=== PATIENT | male | born 1970 | race African-American/Black ===

== ENCOUNTER 2021-11-08 03:44 | Emergency (ER) | payer MEDICAID ==
[~2021-11-08] VITALS: Ht 182.9 cm; Wt 94.0 kg
[~2021-11-08 03:44] MED LIST: AMLO10TA4 PO; ASEN10TA10 SL; FERR325T6 MT; PROT40 MT; SENN-257 MT; SUCR1TAB30 MT
[2021-11-08 03:48] VITALS: BP 142/88
[2021-11-08] MEDS ORDERED: MAGNESIUM/ALUMINUM HYDROXIDE/SIMETHICONE 30ML UDC PO ONE (10:00)
[2021-11-08] MEDS ORDERED: FAMOTIDINE 20MG TABLET PO ONE (10:00)
[2021-11-08] MEDS ORDERED: ONDANSETRON 4MG ODT PO ONE (10:00)
[2021-11-08] MEDS ORDERED: ACETAMINOPHEN 325MG TABLET PO ONE (10:00)
[2021-11-08 11:10] LABS: BASOPHILS % 0.9 % (0.0-2.0); EOSINOPHILS % 0.8 % (0.0-5.0); HEMATOCRIT. 26.9 % (42.0-52.0); HEMOGLOBIN. 8.9 g/dL (14.0-18.0); LYMPHOCYTES % 28.7 % (20.0-50.0); MEAN CORPUSCULAR HEMOGLOBIN 29.7 pg (28.0-32.0); MEAN PLATELET VOLUME 7.2 fl (7.4-10.4); MONOCYTES % 7.5 % (2.0-8.0); NEUTROPHILS % 62.1 % (40.0-76.0); PLATELET 308 x1000/uL (130-400); RED BLOOD CELL COUNT 2.99 mill/uL (4.7-6.1)
[2021-11-08 11:19] LABS: CHLORIDE 104 mEq/L (98-107)
[2021-11-08] MEDS ORDERED: FAMO40TA70 MT (12:51)
[2021-11-08] MEDS ORDERED: SIME180C70 MT (12:51)
== END 2021-11-08 13:15 | disposition home or self-care (01) ==
LOC: ER 03:52
DX: K21.9 Gastro-esophageal reflux disease without esophagitis (principal); D64.9 Anemia, unspecified; K29.70 Gastritis, unspecified, without bleeding; J33.9 Nasal polyp, unspecified; I10 Essential (primary) hypertension
CPT/HCPCS: 36415; 71045; 80053; 85025; 85610; 86850; 86900; 86901; 93005; 99285; Q0162

== ENCOUNTER 2021-12-10 23:33 | Emergency (ER) | payer MEDICAID ==
[~2021-12-10] VITALS: Ht 177.8 cm; Wt 90.0 kg
[~2021-12-10 23:33] MED LIST changes: +FAMO40TA70 MT; +SIME180C70 MT
[2021-12-10 23:57] LABS: BASOPHILS % 0.4 % (0.0-2.0); HEMATOCRIT. 40.2 % (42.0-52.0); LYMPHOCYTES % 21.6 % (20.0-50.0); MEAN CORPUSCULAR HEMOGLOBIN 28.9 pg (28.0-32.0); MEAN CORPUSCULAR VOLUME 89.5 fL (80.0-94.0); MEAN PLATELET VOLUME 7.8 fl (7.4-10.4); MONOCYTES % 7.8 % (2.0-8.0); NEUTROPHILS % 70.2 % (40.0-76.0); PLATELET 255 x1000/uL (130-400); RED BLOOD CELL COUNT 4.49 mill/uL (4.7-6.1)
[2021-12-11 00:04] LABS: CHLORIDE 101 mEq/L (98-107)
[2021-12-11 00:14] LABS: ETHANOL BLOOD < 10 mg/dL
[2021-12-11] MEDS ORDERED: LORAZEPAM 0.5MG TABLET PO ONE (00:15)
[2021-12-11] MEDS ORDERED: ALBUTEROL (0.083%) 2.5MG/3ML NEB HHN ONE ×2 (00:45)
[2021-12-11 01:35] LABS: CLARITY URINE CLEAR (CLEAR); COLOR URINE YELLOW (YELLOW); KETONES URINE NEGATIVE (NEGATIVE); LEUKOCYTE ESTERASE URINE NEGATIVE (NEGATIVE); NITRITE URINE NEGATIVE (NEGATIVE); OCCULT BLOOD URINE NEGATIVE (NEGATIVE); PH URINE 5.5 (4.5-8.0); PROTEIN URINE NEGATIVE (NEGATIVE); SPECIFIC GRAVITY URINE 1.021 (1.005-1.030); UROBILINOGEN URINE 0.2 E.U./dL (0.2-1.0)
[2021-12-11 01:51] LABS: *AMPHETAMINES SCREEN URINE NEGATIVE (NEGATIVE); *BARBITURATES SCREEN URINE NEGATIVE (NEGATIVE); *BENZODIAZEPINES SCREEN URINE NEGATIVE (NEGATIVE); *COCAINE SCREEN URINE NEGATIVE (NEGATIVE); CANNABINOID URINE SCREEN PRESUMTIVE POSITIVE (NEGATIVE); METHADONE URINE SCREEN NEGATIVE (NEGATIVE); OPIATES URINE SCREEN NEGATIVE (NEGATIVE); PHENCYCLIDINE URINE SCREEN NEGATIVE (NEGATIVE)
[2021-12-11 03:13] LABS: BG BASE EXCESS 3.4 mmol/L (-2.0-2.0); BG CARBOXYHEMOGLOBIN 0.2 % (0.5-1.5); BG DEOXYHEMOGLOBIN 7.5 % (0.0-5.0); BG FRACTION INSPIRED OXYGEN 21; BG HCO3 ACT 29.3 mmol/L (22.0-26.0); BG METHEMOGLOBIN 0.2 % (0.0-1.5); BG OXYGEN SATURATION 92.5 % (92.0-98.5); BG OXYHEMOGLOBIN 92.1 % (94.0-97.0); BG PCO2 50.4 mmHg (35.0-45.0); BG PH 7.383 (7.350-7.450); BG PO2 67.5 mmHg (75.0-100.0); BG SAMPLE SITE RIGHT RADIAL; BG VENT MODE ROOM AIR
[2021-12-11] MEDS ORDERED: LORA-249 MT (05:01)
[2021-12-11 05:20] VITALS: BP 112/78
== END 2021-12-11 05:21 | disposition home or self-care (01) ==
LOC: ER 23:33 → CANBEDREQ 12-11 06:10
DX: R06.02 Shortness of breath (principal); I10 Essential (primary) hypertension; Z79.899 Other long term (current) drug therapy
CPT/HCPCS: 36415; 36600; 71045; 80053; 80305; 80320; 81003; 82375; 82805; 84484; 85025; 93005; 94640; 94660; 99291; Z7610; G0480

== ENCOUNTER 2021-12-19 23:34 | Inpatient (IN) | payer MEDICAID ==
[~2021-12-19] VITALS: Ht 175.3 cm; Wt 100.4 kg
[~2021-12-19 23:34] MED LIST changes: +LORA-249 MT
[2021-12-19] MEDS ORDERED: IPRATROPIUM BROMIDE (0.02%) 0.5MG/2.5ML NEB HHN STA (23:45)
[2021-12-19] MEDS ORDERED: SUCCINYLCHOLINE CHLORIDE 200MG/10ML IV ONE (23:45)
[2021-12-19] MEDS ORDERED: VECURONIUM BROMIDE 10 MG/VIAL IV ONE (23:45)
[2021-12-19] MEDS ORDERED: MORPHINE SULFATE 4 MG/ML CPJ (NOT FOR IM USE) IV STA (23:45)
[2021-12-19] MEDS ORDERED: SODIUM CHLORIDE 0.9% 1,000 ML IV ONE (23:45)
[2021-12-19] MEDS ORDERED: METHYLPREDNISOLONE SOD SUCC 125 MG/2 ML VIAL IV STA (23:45)
[2021-12-19] MEDS ORDERED: MAGNESIUM 2 G PREMIX 50 ML IV ONE (23:45)
[2021-12-19] MEDS ORDERED: ONDANSETRON HCL 4MG/2ML INJ IV STA (23:45)
[2021-12-19] MEDS ORDERED: ETOMIDATE 2MG/ML 10ML VIAL IV ONE (23:45)
[2021-12-19] MEDS ORDERED: PROPOFOL 10MG/ML 100ML 100 ML IV ONE (23:45)
[2021-12-19] MEDS ORDERED: MIDAZOLAM HCL 50 MG in DEXTROSE 5% WATER 40 ML IV ONE (23:45)
[2021-12-20] VITALS (61 sets, daily range): BP systolic 95–138; BP diastolic 62–91
[2021-12-20] MEDS ORDERED: MIDAZOLAM 100MG/100ML PMX 100 ML IV NR (00:03)
[2021-12-20 00:22] LABS: BASOPHILS % 0.5 % (0.0-2.0); EOSINOPHILS % 0.1 % (0.0-5.0); HEMATOCRIT. 46.3 % (42.0-52.0); HEMOGLOBIN. 14.6 g/dL (14.0-18.0); LYMPHOCYTES % 33.3 % (20.0-50.0); MEAN CORPUSCULAR HEMOGLOBIN 28.3 pg (28.0-32.0); MEAN CORPUSCULAR VOLUME 89.9 fL (80.0-94.0); MEAN PLATELET VOLUME 7.8 fl (7.4-10.4); MONOCYTES % 10.1 % (2.0-8.0); PLATELET 278 x1000/uL (130-400); RED BLOOD CELL COUNT 5.15 mill/uL (4.7-6.1); RED CELL DISTRIBUTION WIDTH 14.2 % (11.6-14.6)
[2021-12-20 00:44] LABS: ETHANOL BLOOD < 10 mg/dL
[2021-12-20 00:55] LABS: CHLORIDE 101 mEq/L (98-107)
[2021-12-20] MEDS ORDERED: PROPOFOL 10MG/ML 100ML 100 ML IV ONE (01:45)
[2021-12-20] MEDS ORDERED: MIDAZOLAM HCL 50 MG in DEXTROSE 5% WATER 40 ML IV ONE (01:45)
[2021-12-20] MEDS: ALBUTEROL (0.083%) 2.5MG/3ML NEB HHN SCH ×2 (02:00→04:25)
[2021-12-20 02:04] LABS: *AMPHETAMINES SCREEN URINE NEGATIVE (NEGATIVE); *BARBITURATES SCREEN URINE NEGATIVE (NEGATIVE); *BENZODIAZEPINES SCREEN URINE NEGATIVE (NEGATIVE); *COCAINE SCREEN URINE NEGATIVE (NEGATIVE); CANNABINOID URINE SCREEN PRESUMTIVE POSITIVE (NEGATIVE); METHADONE URINE SCREEN NEGATIVE (NEGATIVE); OPIATES URINE SCREEN NEGATIVE (NEGATIVE); PHENCYCLIDINE URINE SCREEN NEGATIVE (NEGATIVE)
[2021-12-20 02:22] LABS: BG BASE EXCESS -5.3 mmol/L (-2.0-2.0); BG CARBOXYHEMOGLOBIN 0.3 % (0.5-1.5); BG DEOXYHEMOGLOBIN 1.4 % (0.0-5.0); BG FRACTION INSPIRED OXYGEN 100; BG HCO3 ACT 21.7 mmol/L (22.0-26.0); BG METHEMOGLOBIN 0.2 % (0.0-1.5); BG OXYGEN SATURATION 98.6 % (92.0-98.5); BG OXYHEMOGLOBIN 98.1 % (94.0-97.0); BG PCO2 47.9 mmHg (35.0-45.0); BG PH 7.273 (7.350-7.450); BG SAMPLE SITE RIGHT BRACHIAL; BG TOTAL HEMOGLOBIN 13.6 g/dL (12.0-18.0); BG VENT MODE VENT - AC
[2021-12-20] MEDS ORDERED: FENTANYL 2500MCG/250ML PMX 250 ML IV STA (02:24)
[2021-12-20] MEDS ORDERED: ALBUTEROL (0.083%) 2.5MG/3ML NEB ONE (04:15)
[2021-12-20] MEDS ORDERED: IPRATROPIUM BROMIDE (0.02%) 0.5MG/2.5ML NEB ONE (04:16)
[2021-12-20] MEDS ORDERED: SUCCINYLCHOLINE CHLORIDE 200MG/10ML IV ONE (09:34)
[2021-12-20] MEDS ORDERED: SODIUM CHLORIDE 0.9% 10ML VIAL ONE (09:34)
[2021-12-20] MEDS ORDERED: ETOMIDATE 2MG/ML 10ML VIAL IV ONE (09:34)
[2021-12-20] MEDS ORDERED: VECURONIUM BROMIDE 10 MG/VIAL IV ONE (09:34)
[2021-12-20] MEDS ORDERED: GUAIFENESIN 200MG/10ML SUGAR FREE UDC PO PRN (10:30)
[2021-12-20] MEDS ORDERED: ACETAMINOPHEN 325MG TABLET PO PRN (10:30)
[2021-12-20] MEDS ORDERED: MAGNESIUM/ALUMINUM HYDROXIDE/SIMETHICONE 30ML UDC PO PRN (10:30)
[2021-12-20] MEDS ORDERED: ONDANSETRON HCL 4MG/2ML INJ IV PRN (10:30)
[2021-12-20] MEDS ORDERED: DOCUSATE SODIUM 100MG CAPSULE PO PRN (10:30)
[2021-12-20] MEDS ORDERED: IPRATROPIUM/ALBUTEROL 0.5-3(2.5)MG/3ML NEB HHN PRN (10:30)
[2021-12-20] MEDS ORDERED: MORPHINE SULFATE 2 MG/ML CPJ (NOT FOR IM USE) IV PRN (10:30)
[2021-12-20] MEDS: METHYLPREDNISOLONE SOD SUCC 125 MG/2 ML VIAL IV SCH ×2 (10:40→18:00)
[2021-12-20] MEDS: DEXT 5%/0.45% NACL 1000ML 1,000 ML IV SCH (10:40)
[2021-12-20] MEDS: ENOXAPARIN 30MG/0.3ML SYR SUBCUT SCH ×2 (10:40→20:01)
[2021-12-20 10:44] LABS: BASOPHILS % 0.1 % (0.0-2.0); HEMATOCRIT. 39.3 % (42.0-52.0); HEMOGLOBIN. 12.8 g/dL (14.0-18.0); LYMPHOCYTES % 14.4 % (20.0-50.0); MEAN CORPUSCULAR HEMOGLOBIN 28.4 pg (28.0-32.0); MEAN CORPUSCULAR VOLUME 87.7 fL (80.0-94.0); MEAN PLATELET VOLUME 7.9 fl (7.4-10.4); MONOCYTES % 1.2 % (2.0-8.0); NEUTROPHILS % 84.3 % (40.0-76.0); PLATELET 242 x1000/uL (130-400); RED BLOOD CELL COUNT 4.49 mill/uL (4.7-6.1); RED CELL DISTRIBUTION WIDTH 14.1 % (11.6-14.6)
[2021-12-20 10:52] LABS: CHLORIDE 107 mEq/L (98-107)
[2021-12-20] MEDS: PROPOFOL 10MG/ML 100ML 100 ML IV PRN ×3 (13:35→22:18)
[2021-12-20] MEDS: ASPIRIN 81MG TABLET PO SCH (13:41)
[2021-12-20] MEDS: SODIUM CHLORIDE 0.9% INJ 3ML FLUSH IVF SCH ×2 (13:42→22:00)
[2021-12-20] MEDS ORDERED: NALOXONE HCL 0.4MG/ML VIAL IV PRN (13:45)
[2021-12-20 15:25] LABS: BG CARBOXYHEMOGLOBIN 0.3 % (0.5-1.5); BG DEOXYHEMOGLOBIN 2.1 % (0.0-5.0); BG FRACTION INSPIRED OXYGEN 40; BG HCO3 ACT 23.1 mmol/L (22.0-26.0); BG METHEMOGLOBIN 0.3 % (0.0-1.5); BG OXYGEN SATURATION 97.9 % (92.0-98.5); BG OXYHEMOGLOBIN 97.3 % (94.0-97.0); BG PCO2 36.5 mmHg (35.0-45.0); BG PH 7.419 (7.350-7.450); BG PO2 101.6 mmHg (75.0-100.0); BG SAMPLE SITE RIGHT RADIAL; BG TOTAL HEMOGLOBIN 13.8 g/dL (12.0-18.0); BG VENT MODE VENT - AC
[2021-12-20] MEDS: AZITHROMYCIN 500 MG in DEXT 5% WATER 250 ML IV SCH (16:00)
[2021-12-20] MEDS: IPRATROPIUM/ALBUTEROL 0.5-3(2.5)MG/3ML NEB HHN SCH ×2 (16:11→20:14)
[2021-12-20] MEDS: MIDAZOLAM 100MG/100ML PMX 100 ML IV PRN (20:01)
[2021-12-20] MEDS: FENTANYL 2500MCG/250ML PMX 250 ML IV PRN (22:19)
[2021-12-21] VITALS (40 sets, daily range): BP systolic 108–162; BP diastolic 45–100
[2021-12-21] MEDS: IPRATROPIUM/ALBUTEROL 0.5-3(2.5)MG/3ML NEB HHN SCH ×6 (00:11→20:13)
[2021-12-21] MEDS: DEXT 5%/0.45% NACL 1000ML 1,000 ML IV SCH ×2 (00:32→18:14)
[2021-12-21] MEDS: METHYLPREDNISOLONE SOD SUCC 125 MG/2 ML VIAL IV SCH ×3 (00:32→12:00)
[2021-12-21] MEDS: PROPOFOL 10MG/ML 100ML 100 ML IV PRN ×3 (02:42→21:03)
[2021-12-21 05:58] LABS: HEMATOCRIT. 39.3 % (42.0-52.0); HEMOGLOBIN. 12.6 g/dL (14.0-18.0); MEAN CORPUSCULAR HEMOGLOBIN 28.1 pg (28.0-32.0); MEAN CORPUSCULAR VOLUME 87.7 fL (80.0-94.0); MEAN PLATELET VOLUME 7.9 fl (7.4-10.4); PLATELET 250 x1000/uL (130-400); RED BLOOD CELL COUNT 4.49 mill/uL (4.7-6.1); RED CELL DISTRIBUTION WIDTH 13.9 % (11.6-14.6)
[2021-12-21 06:13] LABS: CHLORIDE 107 mEq/L (98-107)
[2021-12-21] MEDS: SODIUM CHLORIDE 0.9% INJ 3ML FLUSH IVF SCH ×3 (06:17→22:32)
[2021-12-21] MEDS: MIDAZOLAM 100MG/100ML PMX 100 ML IV PRN ×2 (06:36→19:05)
[2021-12-21 08:37] LABS: BG BASE EXCESS -1.6 mmol/L (-2.0-2.0); BG CARBOXYHEMOGLOBIN 0.3 % (0.5-1.5); BG DEOXYHEMOGLOBIN 2.2 % (0.0-5.0); BG FRACTION INSPIRED OXYGEN 40; BG HCO3 ACT 22.8 mmol/L (22.0-26.0); BG METHEMOGLOBIN 0.3 % (0.0-1.5); BG OXYGEN SATURATION 97.8 % (92.0-98.5); BG OXYHEMOGLOBIN 97.2 % (94.0-97.0); BG PCO2 37.5 mmHg (35.0-45.0); BG PH 7.402 (7.350-7.450); BG PO2 103.9 mmHg (75.0-100.0); BG SAMPLE SITE LEFT RADIAL; BG TOTAL HEMOGLOBIN 13.5 g/dL (12.0-18.0); BG VENT MODE VENT - AC
[2021-12-21] MEDS: ASPIRIN 81MG TABLET PO SCH (09:00)
[2021-12-21] MEDS: ENOXAPARIN 30MG/0.3ML SYR SUBCUT SCH ×2 (09:00→21:06)
[2021-12-21] MEDS: RISPERIDONE 1MG TABLET PO SCH ×2 (09:45→21:00)
[2021-12-21 09:51] LABS: PLATELET ESTIMATE NORMAL
[2021-12-21] MEDS ORDERED: LOSARTAN POTASSIUM 25 MG TABLET PO SCH (10:00)
[2021-12-21] MEDS: AZITHROMYCIN 500 MG in DEXT 5% WATER 250 ML IV SCH (16:00)
[2021-12-21] MEDS: METHYLPREDNISOLONE SOD SUCC 40 MG/ML VIAL IV SCH (17:00)
[2021-12-22] VITALS (73 sets, daily range): BP systolic 129–190; BP diastolic 58–131
[2021-12-22] MEDS: IPRATROPIUM/ALBUTEROL 0.5-3(2.5)MG/3ML NEB HHN SCH ×6 (00:30→21:02)
[2021-12-22] MEDS: FENTANYL 2500MCG/250ML PMX 250 ML IV PRN (01:47)
[2021-12-22] MEDS: PROPOFOL 10MG/ML 100ML 100 ML IV PRN ×2 (02:55→09:13)
[2021-12-22 06:01] LABS: HEMATOCRIT. 37.6 % (42.0-52.0); HEMOGLOBIN. 12.2 g/dL (14.0-18.0); MEAN CORPUSCULAR HEMOGLOBIN 28.6 pg (28.0-32.0); MEAN CORPUSCULAR VOLUME 88.3 fL (80.0-94.0); MEAN PLATELET VOLUME 8.1 fl (7.4-10.4); PLATELET 233 x1000/uL (130-400); RED BLOOD CELL COUNT 4.26 mill/uL (4.7-6.1); RED CELL DISTRIBUTION WIDTH 14.3 % (11.6-14.6)
[2021-12-22] MEDS: SODIUM CHLORIDE 0.9% INJ 3ML FLUSH IVF SCH ×3 (06:41→22:02)
[2021-12-22 06:53] LABS: CHLORIDE 109 mEq/L (98-107)
[2021-12-22 08:31] LABS: BG BASE EXCESS -1.7 mmol/L (-2.0-2.0); BG CARBOXYHEMOGLOBIN 0.3 % (0.5-1.5); BG DEOXYHEMOGLOBIN 2.2 % (0.0-5.0); BG FRACTION INSPIRED OXYGEN 40; BG HCO3 ACT 22.6 mmol/L (22.0-26.0); BG METHEMOGLOBIN 0.3 % (0.0-1.5); BG OXYGEN SATURATION 97.8 % (92.0-98.5); BG OXYHEMOGLOBIN 97.2 % (94.0-97.0); BG PCO2 36.9 mmHg (35.0-45.0); BG PH 7.405 (7.350-7.450); BG PO2 104.9 mmHg (75.0-100.0); BG SAMPLE SITE RIGHT RADIAL; BG TOTAL HEMOGLOBIN 13.3 g/dL (12.0-18.0); BG VENT MODE VENT - AC
[2021-12-22] MEDS: ASPIRIN 81MG TABLET PO SCH (11:30)
[2021-12-22] MEDS: PANTOPRAZOLE SODIUM 40 MG/VIAL IV SCH (11:31)
[2021-12-22] MEDS: METHYLPREDNISOLONE SOD SUCC 40 MG/ML VIAL IV SCH ×2 (11:31→18:30)
[2021-12-22] MEDS: RISPERIDONE 1MG TABLET PO SCH ×3 (11:32→21:00)
[2021-12-22] MEDS: ENOXAPARIN 30MG/0.3ML SYR SUBCUT SCH ×2 (11:32→22:04)
[2021-12-22 12:21] LABS: PLATELET ESTIMATE NORMAL
[2021-12-22] MEDS: AZITHROMYCIN 500 MG in DEXT 5% WATER 250 ML IV SCH (18:30)
[2021-12-22] MEDS: DEXT 5%/0.45% NACL 1000ML 1,000 ML IV SCH (18:30)
[2021-12-22] MEDS: HYDRALAZINE 20MG/ML VIAL IV PRN (20:39)
[2021-12-22] MEDS: DIPHENHYDRAMINE 50MG/ML VIAL IV PRN (20:40)
[2021-12-23] VITALS (80 sets, daily range): BP systolic 144–200; BP diastolic 65–128
[2021-12-23] MEDS: IPRATROPIUM/ALBUTEROL 0.5-3(2.5)MG/3ML NEB HHN SCH ×3 (00:44→08:00)
[2021-12-23] MEDS: HALOPERIDOL LACTATE 5MG/ML VIAL IM PRN ×3 (01:45→20:49)
[2021-12-23] MEDS ORDERED: LORAZEPAM 0.5MG TABLET PO PRN (01:45)
[2021-12-23] MEDS: CLONIDINE 0.1MG TABLET PO PRN ×2 (01:54→20:50)
[2021-12-23] MEDS: LORAZEPAM 1MG TABLET PO PRN ×2 (01:56→08:14)
[2021-12-23] MEDS: DIPHENHYDRAMINE 50MG/ML VIAL IV PRN ×3 (01:56→20:49)
[2021-12-23] MEDS ORDERED: RISPERIDONE 1MG TABLET PO STA (01:57)
[2021-12-23] MEDS: HYDROCODONE/ACETAMINOPHEN 5/325MG TABLET PO PRN ×2 (02:02→20:51)
[2021-12-23] MEDS ORDERED: RISPERIDONE 1MG TABLET PO NR (02:15)
[2021-12-23 05:38] LABS: BASOPHILS % 0.2 % (0.0-2.0); HEMOGLOBIN. 12.9 g/dL (14.0-18.0); LYMPHOCYTES % 7.6 % (20.0-50.0); MEAN CORPUSCULAR HEMOGLOBIN 28.4 pg (28.0-32.0); MEAN CORPUSCULAR VOLUME 87.7 fL (80.0-94.0); MEAN PLATELET VOLUME 7.9 fl (7.4-10.4); MONOCYTES % 6.8 % (2.0-8.0); NEUTROPHILS % 85.4 % (40.0-76.0); PLATELET 238 x1000/uL (130-400); RED BLOOD CELL COUNT 4.57 mill/uL (4.7-6.1); RED CELL DISTRIBUTION WIDTH 14.1 % (11.6-14.6)
[2021-12-23 05:57] LABS: CHLORIDE 107 mEq/L (98-107)
[2021-12-23] MEDS: SODIUM CHLORIDE 0.9% INJ 3ML FLUSH IVF SCH ×3 (06:18→22:00)
[2021-12-23] MEDS: HYDRALAZINE 20MG/ML VIAL IV PRN ×2 (06:18→18:07)
[2021-12-23] MEDS: DEXT 5%/0.45% NACL 1000ML 1,000 ML IV SCH (06:18)
[2021-12-23] MEDS: RISPERIDONE 1MG TABLET PO SCH ×2 (08:14→21:08)
[2021-12-23] MEDS: ASPIRIN 81MG TABLET PO SCH (08:14)
[2021-12-23] MEDS: CARVEDILOL 3.125 MG TABLET PO SCH ×2 (08:15→20:50)
[2021-12-23] MEDS: ENOXAPARIN 30MG/0.3ML SYR SUBCUT SCH ×2 (08:15→20:52)
[2021-12-23] MEDS: METHYLPREDNISOLONE SOD SUCC 40 MG/ML VIAL IV SCH (08:15)
[2021-12-23] MEDS: LOSARTAN POTASSIUM 50 MG TABLET PO SCH (08:15)
[2021-12-23] MEDS: PANTOPRAZOLE SODIUM 40 MG/VIAL IV SCH (08:15)
[2021-12-23] MEDS: AZITHROMYCIN 500 MG in DEXT 5% WATER 250 ML IV SCH (18:07)
[2021-12-24] VITALS (59 sets, daily range): BP systolic 111–168; BP diastolic 59–112
[2021-12-24] MEDS: DEXT 5%/0.45% NACL 1000ML 1,000 ML IV SCH ×2 (01:40→13:34)
[2021-12-24] MEDS: LORAZEPAM 1MG TABLET PO PRN (01:53)
[2021-12-24] MEDS: ENOXAPARIN 30MG/0.3ML SYR SUBCUT SCH ×2 (09:00→21:27)
[2021-12-24] MEDS: ASPIRIN 81MG TABLET PO SCH (09:00)
[2021-12-24] MEDS: PANTOPRAZOLE SODIUM 40 MG/VIAL IV SCH (09:00)
[2021-12-24] MEDS: RISPERIDONE 1MG TABLET PO SCH ×2 (09:00→21:28)
[2021-12-24] MEDS: CARVEDILOL 3.125 MG TABLET PO SCH ×2 (09:00→21:28)
[2021-12-24] MEDS: PREDNISONE 20MG TABLET PO SCH (09:00)
[2021-12-24] MEDS: LOSARTAN POTASSIUM 50 MG TABLET PO SCH ×3 (09:00→21:27)
[2021-12-24 12:00] LABS: CHLORIDE 103 mEq/L (98-107)
[2021-12-24 12:02] LABS: BASOPHILS % 0.2 % (0.0-2.0); EOSINOPHILS % 0.1 % (0.0-5.0); HEMOGLOBIN. 14.2 g/dL (14.0-18.0); LYMPHOCYTES % 24.6 % (20.0-50.0); MEAN CORPUSCULAR HEMOGLOBIN 28.7 pg (28.0-32.0); MEAN CORPUSCULAR VOLUME 86.9 fL (80.0-94.0); MEAN PLATELET VOLUME 8.5 fl (7.4-10.4); MONOCYTES % 9.6 % (2.0-8.0); NEUTROPHILS % 65.5 % (40.0-76.0); PLATELET 257 x1000/uL (130-400); RED BLOOD CELL COUNT 4.95 mill/uL (4.7-6.1); RED CELL DISTRIBUTION WIDTH 14.5 % (11.6-14.6)
[2021-12-24] MEDS: SODIUM CHLORIDE 0.9% INJ 3ML FLUSH IVF SCH ×2 (13:30→21:28)
[2021-12-24] MEDS: AZITHROMYCIN 500 MG in DEXT 5% WATER 250 ML IV SCH (15:39)
[2021-12-25] VITALS (46 sets, daily range): BP systolic 90–184; BP diastolic 20–113
[2021-12-25] MEDS: DIPHENHYDRAMINE 50MG/ML VIAL IV PRN ×2 (05:38→21:49)
[2021-12-25] MEDS: SODIUM CHLORIDE 0.9% INJ 3ML FLUSH IVF SCH ×3 (05:41→21:50)
[2021-12-25 05:46] LABS: BASOPHILS % 0.3 % (0.0-2.0); EOSINOPHILS % 0.8 % (0.0-5.0); HEMATOCRIT. 44.4 % (42.0-52.0); HEMOGLOBIN. 14.4 g/dL (14.0-18.0); MEAN CORPUSCULAR HEMOGLOBIN 28.6 pg (28.0-32.0); MEAN CORPUSCULAR VOLUME 88.1 fL (80.0-94.0); MEAN PLATELET VOLUME 7.9 fl (7.4-10.4); NEUTROPHILS % 45.9 % (40.0-76.0); PLATELET 244 x1000/uL (130-400); RED BLOOD CELL COUNT 5.04 mill/uL (4.7-6.1); RED CELL DISTRIBUTION WIDTH 14.1 % (11.6-14.6)
[2021-12-25 05:48] LABS: CHLORIDE 100 mEq/L (98-107)
[2021-12-25] MEDS: DEXT 5%/0.45% NACL 1000ML 1,000 ML IV SCH (07:10)
[2021-12-25] MEDS: RISPERIDONE 1MG TABLET PO SCH ×2 (08:07→21:49)
[2021-12-25] MEDS: ENOXAPARIN 30MG/0.3ML SYR SUBCUT SCH ×2 (08:07→21:49)
[2021-12-25] MEDS: LORAZEPAM 1MG TABLET PO PRN (08:07)
[2021-12-25] MEDS: LOSARTAN POTASSIUM 50 MG TABLET PO SCH ×2 (08:08→21:49)
[2021-12-25] MEDS: PANTOPRAZOLE SODIUM 40 MG/VIAL IV SCH (08:08)
[2021-12-25] MEDS: ASPIRIN 81MG TABLET PO SCH (08:08)
[2021-12-25] MEDS: PREDNISONE 20MG TABLET PO SCH (08:08)
[2021-12-25] MEDS: CARVEDILOL 3.125 MG TABLET PO SCH ×2 (08:08→21:49)
[2021-12-25] MEDS ORDERED: CEFTRIAXONE 1 G PREMIX 50 ML IV SCH (13:30)
[2021-12-25] MEDS: CEFTRIAXONE 2 G in DEXTROSE 5% WATER 50 ML IV SCH (15:24)
[2021-12-25] MEDS: ASENAPINE MALEATE 10 MG SL SCH (16:47)
[2021-12-25] MEDS ORDERED: BENZTROPINE MESYLATE 1MG TABLET PO SCH (18:30)
[2021-12-26] VITALS (24 sets, daily range): BP systolic 105–192; BP diastolic 29–115
[2021-12-26] MEDS: ASPIRIN 81MG TABLET PO SCH (09:01)
[2021-12-26] MEDS: PANTOPRAZOLE SODIUM 40 MG/VIAL IV SCH (09:02)
[2021-12-26] MEDS: PREDNISONE 20MG TABLET PO SCH (09:03)
[2021-12-26] MEDS: BENZTROPINE MESYLATE 1MG TABLET PO SCH ×2 (09:04→17:23)
[2021-12-26] MEDS: CARVEDILOL 3.125 MG TABLET PO SCH ×2 (09:04→21:43)
[2021-12-26] MEDS: RISPERIDONE 1MG TABLET PO SCH ×2 (09:04→21:43)
[2021-12-26] MEDS: LOSARTAN POTASSIUM 50 MG TABLET PO SCH ×2 (09:04→21:43)
[2021-12-26] MEDS: ASENAPINE MALEATE 10 MG SL SCH ×2 (09:05→17:00)
[2021-12-26] MEDS: ENOXAPARIN 30MG/0.3ML SYR SUBCUT SCH ×2 (09:05→21:44)
[2021-12-26] MEDS: CEFTRIAXONE 2 G in DEXTROSE 5% WATER 50 ML IV SCH (13:52)
[2021-12-26] MEDS: SODIUM CHLORIDE 0.9% INJ 3ML FLUSH IVF SCH ×2 (14:00→21:44)
[2021-12-26] MEDS: DIPHENHYDRAMINE 50MG/ML VIAL IV PRN (21:46)
[2021-12-27] VITALS (18 sets, daily range): BP systolic 104–226; BP diastolic 40–120
[2021-12-27] MEDS: LORAZEPAM 1MG TABLET PO PRN (04:26)
[2021-12-27] MEDS: SODIUM CHLORIDE 0.9% INJ 3ML FLUSH IVF SCH ×3 (05:49→21:10)
[2021-12-27] MEDS: HYDRALAZINE 20MG/ML VIAL IV PRN (05:57)
[2021-12-27] MEDS: PANTOPRAZOLE SODIUM 40 MG/VIAL IV SCH (08:47)
[2021-12-27] MEDS: ENOXAPARIN 30MG/0.3ML SYR SUBCUT SCH ×2 (08:47→21:09)
[2021-12-27] MEDS: BENZTROPINE MESYLATE 1MG TABLET PO SCH ×2 (08:48→16:16)
[2021-12-27] MEDS: PREDNISONE 20MG TABLET PO SCH (08:48)
[2021-12-27] MEDS: ASPIRIN 81MG TABLET PO SCH (08:48)
[2021-12-27] MEDS: RISPERIDONE 1MG TABLET PO SCH ×2 (08:48→21:10)
[2021-12-27] MEDS: ASENAPINE MALEATE 10 MG SL SCH ×3 (08:48→16:25)
[2021-12-27] MEDS: LOSARTAN POTASSIUM 50 MG TABLET PO SCH ×2 (08:48→21:00)
[2021-12-27] MEDS: CARVEDILOL 3.125 MG TABLET PO SCH ×2 (08:49→21:00)
[2021-12-27] MEDS: CEFTRIAXONE 2 G in DEXTROSE 5% WATER 50 ML IV SCH (13:47)
[2021-12-27] MEDS: DIPHENHYDRAMINE 50MG/ML VIAL IV PRN ×2 (16:24→21:33)
[2021-12-28] VITALS: BP 107/75
[2021-12-28] MEDS: LORAZEPAM 1MG TABLET PO PRN (00:26)
[2021-12-28 04:00] VITALS: BP 127/85
[2021-12-28] MEDS: SODIUM CHLORIDE 0.9% INJ 3ML FLUSH IVF SCH ×3 (05:56→21:30)
[2021-12-28] MEDS: RISPERIDONE 1MG TABLET PO SCH ×2 (08:33→21:29)
[2021-12-28] MEDS: ASPIRIN 81MG TABLET PO SCH (08:33)
[2021-12-28] MEDS: LOSARTAN POTASSIUM 50 MG TABLET PO SCH ×2 (08:33→21:00)
[2021-12-28] MEDS: BENZTROPINE MESYLATE 1MG TABLET PO SCH ×2 (08:33→17:06)
[2021-12-28] MEDS: ENOXAPARIN 30MG/0.3ML SYR SUBCUT SCH ×2 (08:34→21:29)
[2021-12-28] MEDS: CARVEDILOL 3.125 MG TABLET PO SCH ×2 (08:35→21:00)
[2021-12-28] MEDS: PANTOPRAZOLE SODIUM 40 MG/VIAL IV SCH (08:36)
[2021-12-28] MEDS: ASENAPINE MALEATE 10 MG SL SCH ×2 (09:05→17:06)
[2021-12-28] MEDS: CEFTRIAXONE 2 G in DEXTROSE 5% WATER 50 ML IV SCH (14:00)
[2021-12-28 17:39] VITALS: BP 125/65
[2021-12-28 20:00] VITALS: BP 112/66
[2021-12-28] MEDS: DIPHENHYDRAMINE 50MG/ML VIAL IV PRN (21:45)
[2021-12-29] VITALS: BP 115/77
[2021-12-29] MEDS: DIPHENHYDRAMINE 50MG/ML VIAL IV PRN ×2 (01:49→20:59)
[2021-12-29 04:00] VITALS: BP 129/83
[2021-12-29] MEDS: SODIUM CHLORIDE 0.9% INJ 3ML FLUSH IVF SCH ×3 (05:21→21:00)
[2021-12-29 08:30] VITALS: BP 118/76
[2021-12-29] MEDS ORDERED: NITROGLYCERIN SPRAY/4.9GM CAN TL NR (08:30)
[2021-12-29] MEDS: ASENAPINE MALEATE 10 MG SL SCH ×2 (09:00→17:00)
[2021-12-29] MEDS: ASPIRIN 81MG TABLET PO SCH (09:01)
[2021-12-29] MEDS: CARVEDILOL 3.125 MG TABLET PO SCH ×2 (09:02→20:48)
[2021-12-29] MEDS: BENZTROPINE MESYLATE 1MG TABLET PO SCH ×2 (09:02→17:06)
[2021-12-29] MEDS: RISPERIDONE 1MG TABLET PO SCH ×2 (09:03→20:59)
[2021-12-29] MEDS: ENOXAPARIN 30MG/0.3ML SYR SUBCUT SCH ×3 (09:03→21:00)
[2021-12-29] MEDS: PANTOPRAZOLE SODIUM 40 MG/VIAL IV SCH (09:03)
[2021-12-29] MEDS: LOSARTAN POTASSIUM 50 MG TABLET PO SCH ×2 (09:03→20:49)
[2021-12-29 11:40] VITALS: BP 116/75
[2021-12-29] MEDS ORDERED: IOHEXOL-350 100 ML BOTTLE ONE (13:24)
[2021-12-29] MEDS: CEFTRIAXONE 2 G in DEXTROSE 5% WATER 50 ML IV SCH (14:54)
[2021-12-29 15:48] VITALS: BP 113/66
[2021-12-29 20:00] VITALS: BP 114/76
[2021-12-29] MEDS ORDERED: DIPHENHYDRAMINE 50MG/ML VIAL IV PRN (21:00)
[2021-12-30] VITALS: BP 127/83
[2021-12-30 04:00] VITALS: BP 118/84
[2021-12-30] MEDS: SODIUM CHLORIDE 0.9% INJ 3ML FLUSH IVF SCH ×3 (06:05→21:11)
[2021-12-30 08:00] VITALS: BP 120/85
[2021-12-30] MEDS: ASENAPINE MALEATE 10 MG SL SCH ×2 (09:00→17:00)
[2021-12-30] MEDS: ENOXAPARIN 30MG/0.3ML SYR SUBCUT SCH (09:00)
[2021-12-30] MEDS: PANTOPRAZOLE SODIUM 40 MG/VIAL IV SCH (09:49)
[2021-12-30] MEDS: ASPIRIN 81MG TABLET PO SCH (09:49)
[2021-12-30] MEDS: RISPERIDONE 1MG TABLET PO SCH ×2 (09:50→21:11)
[2021-12-30] MEDS: BENZTROPINE MESYLATE 1MG TABLET PO SCH ×2 (09:50→17:17)
[2021-12-30] MEDS: CARVEDILOL 3.125 MG TABLET PO SCH ×2 (09:50→21:11)
[2021-12-30] MEDS: LOSARTAN POTASSIUM 50 MG TABLET PO SCH ×2 (09:50→21:10)
[2021-12-30 12:00] VITALS: BP 124/91
[2021-12-30] MEDS ORDERED: NITROGLYCERIN SPRAY/4.9GM CAN TL ONE (12:15)
[2021-12-30] MEDS: CEFTRIAXONE 2 G in DEXTROSE 5% WATER 50 ML IV SCH (14:45)
[2021-12-30 16:00] VITALS: BP 123/78
[2021-12-30 20:00] VITALS: BP 113/69
[2021-12-30] MEDS: ENOXAPARIN 120MG/0.8ML SYR SUBCUT NR ×2 (20:00→21:10)
[2021-12-30] MEDS: ZOLPIDEM TARTRATE 5MG TABLET PO PRN (22:07)
[2021-12-31] VITALS: BP 99/78
[2021-12-31 04:00] VITALS: BP_SYST 119; BP_SYST 128; BP_DIAS 69; BP_DIAS 77
[2021-12-31] MEDS: SODIUM CHLORIDE 0.9% INJ 3ML FLUSH IVF SCH ×3 (06:32→21:49)
[2021-12-31 08:00] VITALS: BP 124/92
[2021-12-31 08:07] LABS: BASOPHILS % 0.5 % (0.0-2.0); EOSINOPHILS % 1.7 % (0.0-5.0); HEMATOCRIT. 41.9 % (42.0-52.0); HEMOGLOBIN. 13.4 g/dL (14.0-18.0); LYMPHOCYTES % 45.6 % (20.0-50.0); MEAN CORPUSCULAR HEMOGLOBIN 28.2 pg (28.0-32.0); MEAN CORPUSCULAR VOLUME 87.8 fL (80.0-94.0); MEAN PLATELET VOLUME 7.6 fl (7.4-10.4); MONOCYTES % 11.5 % (2.0-8.0); NEUTROPHILS % 40.7 % (40.0-76.0); PLATELET 272 x1000/uL (130-400); RED BLOOD CELL COUNT 4.77 mill/uL (4.7-6.1); RED CELL DISTRIBUTION WIDTH 13.6 % (11.6-14.6)
[2021-12-31 08:22] LABS: CHLORIDE 104 mEq/L (98-107)
[2021-12-31] MEDS: ASPIRIN 81MG TABLET PO SCH (08:52)
[2021-12-31] MEDS: BENZTROPINE MESYLATE 1MG TABLET PO SCH ×2 (08:52→16:50)
[2021-12-31] MEDS: PANTOPRAZOLE SODIUM 40 MG/VIAL IV SCH (08:52)
[2021-12-31] MEDS: LOSARTAN POTASSIUM 50 MG TABLET PO SCH ×2 (08:53→21:49)
[2021-12-31] MEDS: CARVEDILOL 3.125 MG TABLET PO SCH ×2 (08:53→21:49)
[2021-12-31] MEDS: RISPERIDONE 1MG TABLET PO SCH ×2 (08:53→21:49)
[2021-12-31] MEDS: ASENAPINE MALEATE 10 MG SL SCH ×2 (08:54→09:32)
[2021-12-31 09:27] LABS: INR 1.1; PROTHROMBIN TIME 11.3 sec (9.6-11.0)
[2021-12-31 12:00] VITALS: BP 120/75
[2021-12-31 16:00] VITALS: BP 104/71
[2021-12-31] MEDS: ENOXAPARIN 100MG/ML SYR SUBCUT SCH (16:50)
[2021-12-31 20:00] VITALS: BP 112/78
[2021-12-31] MEDS: ZOLPIDEM TARTRATE 5MG TABLET PO PRN (22:35)
[2022-01-01] VITALS: BP 112/69
[2022-01-01 04:00] VITALS: BP 120/70
[2022-01-01] MEDS: SODIUM CHLORIDE 0.9% INJ 3ML FLUSH IVF SCH ×3 (06:25→20:40)
[2022-01-01] MEDS: ASENAPINE MALEATE 10 MG SL SCH ×2 (07:30→14:44)
[2022-01-01 08:00] VITALS: BP 115/84
[2022-01-01] MEDS: PANTOPRAZOLE SODIUM 40 MG/VIAL IV SCH (09:35)
[2022-01-01] MEDS: LOSARTAN POTASSIUM 50 MG TABLET PO SCH ×2 (09:35→20:40)
[2022-01-01] MEDS: ENOXAPARIN 100MG/ML SYR SUBCUT SCH ×2 (09:35→16:38)
[2022-01-01] MEDS: CARVEDILOL 3.125 MG TABLET PO SCH ×2 (09:36→20:40)
[2022-01-01] MEDS: BENZTROPINE MESYLATE 1MG TABLET PO SCH ×2 (09:36→17:15)
[2022-01-01] MEDS: RISPERIDONE 1MG TABLET PO SCH ×2 (09:36→20:40)
[2022-01-01] MEDS: ASPIRIN 81MG TABLET PO SCH (09:36)
[2022-01-01 12:00] VITALS: BP 129/78
[2022-01-01 16:00] VITALS: BP 108/69
[2022-01-01 20:00] VITALS: BP 118/94
[2022-01-01] MEDS: ZOLPIDEM TARTRATE 5MG TABLET PO PRN (21:39)
[2022-01-02] VITALS (7 sets, daily range): BP systolic 106–124; BP diastolic 68–88
[2022-01-02] MEDS: SODIUM CHLORIDE 0.9% INJ 3ML FLUSH IVF SCH ×3 (06:10→20:44)
[2022-01-02] MEDS: ASENAPINE MALEATE 10 MG SL SCH ×2 (07:57→08:04)
[2022-01-02] MEDS: ASPIRIN 81MG TABLET PO SCH (07:58)
[2022-01-02] MEDS: ENOXAPARIN 100MG/ML SYR SUBCUT SCH ×2 (08:04→16:38)
[2022-01-02] MEDS: CARVEDILOL 3.125 MG TABLET PO SCH ×2 (08:43→20:44)
[2022-01-02] MEDS: RISPERIDONE 1MG TABLET PO SCH ×2 (08:43→20:44)
[2022-01-02] MEDS: BENZTROPINE MESYLATE 1MG TABLET PO SCH ×2 (08:43→16:59)
[2022-01-02] MEDS: PANTOPRAZOLE SODIUM 40 MG/VIAL IV SCH (08:43)
[2022-01-02] MEDS: LOSARTAN POTASSIUM 50 MG TABLET PO SCH ×2 (08:43→20:44)
[2022-01-02] MEDS: ZOLPIDEM TARTRATE 5MG TABLET PO PRN (21:54)
[2022-01-03 04:00] VITALS: BP 106/68
[2022-01-03] MEDS: SODIUM CHLORIDE 0.9% INJ 3ML FLUSH IVF SCH ×3 (06:00→21:37)
[2022-01-03 08:00] VITALS: BP 117/89
[2022-01-03] MEDS: PANTOPRAZOLE SODIUM 40 MG/VIAL IV SCH (08:44)
[2022-01-03] MEDS: ASPIRIN 81MG TABLET PO SCH (08:44)
[2022-01-03] MEDS: LOSARTAN POTASSIUM 50 MG TABLET PO SCH ×2 (08:52→20:42)
[2022-01-03] MEDS: RISPERIDONE 1MG TABLET PO SCH ×2 (08:52→20:42)
[2022-01-03] MEDS: CARVEDILOL 3.125 MG TABLET PO SCH ×2 (08:52→20:43)
[2022-01-03] MEDS: BENZTROPINE MESYLATE 1MG TABLET PO SCH ×2 (08:53→17:45)
[2022-01-03] MEDS: ENOXAPARIN 100MG/ML SYR SUBCUT SCH ×2 (08:54→20:45)
[2022-01-03] MEDS: ASENAPINE MALEATE 10 MG SL SCH ×2 (09:00→17:00)
[2022-01-03 12:00] VITALS: BP 125/94
[2022-01-03 16:00] VITALS: BP 120/88
[2022-01-03 20:00] VITALS: BP 118/79
[2022-01-03] MEDS: ZOLPIDEM TARTRATE 5MG TABLET PO PRN (21:37)
[2022-01-04] VITALS: BP 114/77
[2022-01-04 04:00] VITALS: BP 131/86
[2022-01-04] MEDS: SODIUM CHLORIDE 0.9% INJ 3ML FLUSH IVF SCH (06:08)
[2022-01-04 08:00] VITALS: BP 135/92
[2022-01-04] MEDS: ENOXAPARIN 100MG/ML SYR SUBCUT SCH (09:00)
[2022-01-04] MEDS: ASPIRIN 81MG TABLET PO SCH (09:16)
[2022-01-04] MEDS: LOSARTAN POTASSIUM 50 MG TABLET PO SCH (09:21)
[2022-01-04] MEDS: RISPERIDONE 1MG TABLET PO SCH (09:21)
[2022-01-04] MEDS: CARVEDILOL 3.125 MG TABLET PO SCH (09:21)
[2022-01-04] MEDS: BENZTROPINE MESYLATE 1MG TABLET PO SCH (09:22)
[2022-01-04] MEDS: PANTOPRAZOLE SODIUM 40 MG/VIAL IV SCH (09:23)
[2022-01-04] MEDS: ASENAPINE MALEATE 10 MG SL SCH (09:34)
[2022-01-04 13:04] VITALS: BP 135/92
== END 2022-01-04 15:05 | DRG 133 ==
LOC: ER 23:34 → ENRESERV 12-20 06:59 → CVICU 12-20 08:16 → 6WST 12-27 15:36
PROVIDERS: ADMIT Internal Medicine; ATTEND Internal Medicine
PROC: 5A1945Z Respiratory Ventilation, 24-96 Consecutive Hours (ICD-10-PCS; principal; 2021-12-19)
PROC: 0BH17EZ Insertion of Endotracheal Airway into Trachea, Via Natural or Artificial Opening (ICD-10-PCS; 2021-12-19)
PROC: 5A09357 Assistance with Respiratory Ventilation, Less than 24 Consecutive Hours, Continuous Positive Airway Pressure (ICD-10-PCS; 2021-12-22)
PROC: B548ZZA Ultrasonography of Superior Vena Cava, Guidance (ICD-10-PCS; 2021-12-22)
PROC: 02HV33Z Insertion of Infusion Device into Superior Vena Cava, Percutaneous Approach (ICD-10-PCS; 2021-12-30)
PROC: B5181ZA Fluoroscopy of Superior Vena Cava using Low Osmolar Contrast, Guidance (ICD-10-PCS; 2021-12-30)
DX: J96.01 Acute respiratory failure with hypoxia (principal); I21.4 Non-ST elevation (NSTEMI) myocardial infarction; E87.2 Acidosis; I42.9 Cardiomyopathy, unspecified; J45.901 Unspecified asthma with (acute) exacerbation; J44.9 Chronic obstructive pulmonary disease, unspecified; D64.9 Anemia, unspecified; I11.0 Hypertensive heart disease with heart failure; I50.20 Unspecified systolic (congestive) heart failure; I16.0 Hypertensive urgency; J98.11 Atelectasis; F41.9 Anxiety disorder, unspecified; F20.9 Schizophrenia, unspecified; F12.90 Cannabis use, unspecified, uncomplicated; R00.1 Bradycardia, unspecified; Z20.822 Contact with and (suspected) exposure to COVID-19
CPT/HCPCS: 36415; 36573; 36600; 71045; 75571; 80048; 80053; 80305; 80320; 82270; 82375; 82805; 83605; 83880; 84478; 84484; 85025; 85379; 87070; 87077; 87186; 87426; 87804; 93005; 93306; 93308; 93970; 94002; 94003; 94640; 97161; 99291; C1725; C9113; C9803; J0330; J0360; J0456; J0696; J1200; J1630; J1650; J2250; J2270; J2405; J2704; J2920; J2930; J3010; J3475; J3490; J7030; J7060; J7512; Q9967; G0480

== ENCOUNTER 2022-01-09 09:43 | Emergency (ER) | payer MEDICAID ==
[~2022-01-09] VITALS: Ht 188 cm; Wt 80.0 kg
[2022-01-09 09:54] VITALS: BP 153/85
[2022-01-09] MEDS ORDERED: ZOLP10TA2 MT (10:29)
[2022-01-09] MEDS ORDERED: AMLO10TA80 MT (10:29)
[2022-01-09] MEDS ORDERED: BENZ1TAB7 MT (10:29)
[2022-01-09] MEDS ORDERED: RISP4TAB72 PO (10:29)
== END 2022-01-09 11:35 | disposition home or self-care (01) ==
LOC: ER 11:09
DX: Z76.0 Encounter for issue of repeat prescription (principal); I10 Essential (primary) hypertension; F31.9 Bipolar disorder, unspecified; F41.9 Anxiety disorder, unspecified
CPT/HCPCS: 99283

== ENCOUNTER 2023-08-25 07:15 | Emergency (ER) | payer MEDICAID ==
[~2023-08-25] VITALS: Ht 188 cm; Wt 110.0 kg
[~2023-08-25 07:15] MED LIST changes: +AMLO10TA80 MT; +BENZ1TAB79 MT; +RISP4TAB93 PO; +ZOLP10TA2 MT
[2023-08-25 07:21] VITALS: O2SAT 98
[2023-08-25 08:11] LABS: BASOPHILS % 0.2 % (0.0-2.0); EOSINOPHILS % 0.5 % (0.0-5.0); HEMATOCRIT. 44.9 % (42.0-52.0); HEMOGLOBIN. 14.9 g/dL (14.0-18.0); LYMPHOCYTES % 20.7 % (20.0-50.0); MEAN CORPUSCULAR HEMOGLOBIN 29.8 pg (28.0-32.0); MEAN CORPUSCULAR HGB CONC 33.2 g/dL (31.0-37.0); MEAN CORPUSCULAR VOLUME 89.7 fL (80.0-94.0); MEAN PLATELET VOLUME 7.8 fl (7.4-10.4); MONOCYTES % 9.6 % (2.0-8.0); PLATELET 242 x1000/uL (130-400); RED CELL DISTRIBUTION WIDTH 14.1 % (11.6-14.6); WHITE BLOOD COUNT 8.3 x1000/uL (4.5-11.0)
[2023-08-25] MEDS: OLANZAPINE 10 MG/VIAL IM ONE ×2 (08:31→22:40)
[2023-08-25] MEDS: LORAZEPAM 2MG/ML INJ IM ONE ×2 (08:32→22:40)
[2023-08-25 08:35] LABS: ALANINE AMINOTRANSFERASE 128 IU/L (10-49); ALBUMIN 4.7 g/dL (3.2-4.8); ASPARTATE AMINOTRANSFERASE 225 IU/L (<34); CALCIUM 9.1 mg/dL (8.7-10.4); CARBON DIOXIDE 24 mEq/L (21-32); CHLORIDE 108 mEq/L (98-107); GLUCOSE 85 mg/dL (70-105); POTASSIUM 3.2 mEq/L (3.5-5.1); PROTEIN TOTAL 8.5 g/dL (6.0-8.3); SODIUM 141 mEq/L (136-145); UREA NITROGEN BLOOD 14 mg/dL (9-23)
[2023-08-25 08:43] LABS: ETHANOL BLOOD < 10 mg/dL (<10)
[2023-08-25 17:49] LABS: CLARITY URINE CLEAR (CLEAR); COLOR URINE YELLOW (YELLOW); GLUCOSE URINE NEGATIVE (NEGATIVE); KETONES URINE NEGATIVE (NEGATIVE); LEUKOCYTE ESTERASE URINE NEGATIVE (NEGATIVE); NITRITE URINE NEGATIVE (NEGATIVE); OCCULT BLOOD URINE NEGATIVE (NEGATIVE); PROTEIN URINE 1+ (NEGATIVE); SPECIFIC GRAVITY URINE 1.029 (1.005-1.030)
[2023-08-25 17:57] LABS: *AMPHETAMINES SCREEN URINE NEGATIVE (NEGATIVE); *BARBITURATES SCREEN URINE NEGATIVE (NEGATIVE); *BENZODIAZEPINES SCREEN URINE NEGATIVE (NEGATIVE); *COCAINE SCREEN URINE NEGATIVE (NEGATIVE); CANNABINOID URINE SCREEN PRESUMPTIVE POSITIVE (NEGATIVE); ECSTASY MDMA SCREEN URINE NEGATIVE (NEGATIVE); METHADONE URINE SCREEN Neg (NEGATIVE); OPIATES URINE SCREEN PRESUMPTIVE POSITIVE (NEGATIVE); PHENCYCLIDINE URINE SCREEN NEGATIVE (NEGATIVE)
[2023-08-25 18:15] LABS: BACTERIA URINE TRACE; FINE GRANULAR CASTS URINE 0-5 /lpf; RBC URINE 0-2 /hpf (0-2); SQUAMOUS EPITHELIAL CELL URINE NONE SEEN /lpf (RARE/1+)
[2023-08-26] MEDS ORDERED: OLANZAPINE 10MG TABLET PO SCH (11:30)
[2023-08-26 14:12] VITALS: BP 148/99; PULSE 84; RESP 18; TEMP 98.8
== END 2023-08-26 15:35 | disposition home or self-care (01) ==
LOC: ER 07:15
DX: R41.82 Altered mental status, unspecified (principal); F41.9 Anxiety disorder, unspecified; I10 Essential (primary) hypertension; F12.10 Cannabis abuse, uncomplicated; Z79.899 Other long term (current) drug therapy; Z20.822 Contact with and (suspected) exposure to COVID-19
CPT/HCPCS: 80053; 80305; 81003; 80320; 85025; 36415; 96372; 99285; 87426; J3490; J2060; Z7610 ×2; G0480